=== PATIENT | female | born 1995 | race Hispanic/Latino ===

== ENCOUNTER 2016-09-14 18:44 | Emergency (ER) | payer OTHER ==
[~2016-09-14] VITALS: Ht 157.5 cm; Wt 61.2 kg
[~2016-09-14 18:44] MED LIST: AMOXICILLIN500 MG PO; BACTRIM DS1 TAB PO; CEPHALEXIN500 MG PO; FLUCONAZOLE150 MG PO; IBUPROFEN200 MG PO; MACRODANTIN100 MG PO; NO; NO HOME MEDS; NORCO1 TA1 PO; PRENATABS PO; PRENATAL1 TA1 PO; PREVACID30 M2 OR; PRILOSEC20 MG PO; REGLAN10 MG OR; TAM75CAP PO; TORADOL PO; ULTRAM50 MG OR; ZOFRAN ODT4 MG PO; ZOFRAN4 MG/TAB PO
[2016-09-14 19:34] LABS: HEMATOCRIT 39.4 % (37.0-47.0); HEMOGLOBIN 13.6 g/dl (12.0-16.0); IMMATURE GRANULOCYTES 0.6 % (0.0-1.0); MEAN CELL VOLUME 91.4 fL CALC (80.0-100.0); MEAN CORPUSCULAR HGB 31.6 pG CALC (26.0-32.0); MEAN CORPUSCULAR HGB CONC 34.5 g/L CALC (32.0-36.0); NEUT# 12.14 thou/uL (2.00-7.15); RED BLOOD COUNT 4.31 mill/uL (4.20-5.60); RED CELL DISTRI WIDTH 12.5 % (11.5-15.5); URINE BILIRUBIN - DIPSTICK NEGATIVE (NEGATIVE); URINE BLOOD DIPSTICK NEGATIVE (NEGATIVE); URINE CLARITY CLEAR; URINE COLOR YELLOW; URINE GLUCOSE - DIPSTICK NEGATIVE (NEGATIVE); URINE KETONE NEGATIVE (NEGATIVE); URINE LEUK ESTERASE TRACE (NEGATIVE); URINE NITRITE - DIPSTICK NEGATIVE (Negative); URINE PROTEIN - DIPSTICK NEGATIVE (NEG-TRACE); URINE SPECIFIC GRAVITY <=1.005; URINE UROBILINOGEN - DIPSTICK 0.2 E.U./dL (0.2)
[2016-09-14 19:44] LABS: ALKALINE PHOSPHATASE 133 u/l (38-126); ANION GAP 17 (6-22 (CALC)); BILIRUBIN, TOTAL 0.7 mg/dL (0.0-1.4); BUN 10 mg/dL (7-17); BUN/CREATININE RATIO 12 (12-20 (CALC)); CALCIUM 8.8 mg/dL (8.4-10.2); CARBON DIOXIDE 22 mmol/l (22-30); CHLORIDE 104 mmol/l (95-108); CREATININE 0.8 mg/dL (0.5-1.0); GFR > 60 ML/MIN (>=60 (CALC)); GFR FOR AFR.AMER. > 60 ML/MIN (>=60 (CALC)); GLUCOSE 80 mg/dL (65-105); POTASSIUM 3.2 mmol/l (3.5-5.1); SGOT/AST 19 u/l (14-36); SGPT/ALT 28 u/l (9-52); SODIUM 140 mmol/l (137-146); TOTAL PROTEIN 7.2 g/dL (6.3-8.2)
[2016-09-14 19:54] LABS: INFLUENZA A NONE DETECTED (NONE DETECT); INFLUENZA B NONE DETECTED (NONE DETECT)
[2016-09-14] MEDS ORDERED: DOXYCYCL HYC100 MG PO (21:03)
[2016-09-14] MEDS ORDERED: ULTRAM50 M1 PO (21:03)
[2016-09-14 21:41] VITALS: BP 113/65
== END 2016-09-14 21:40 | disposition home or self-care (01) | DRG 776 ==
LOC: ED 18:44
DX: O86.12 Endometritis following delivery (principal); R50.9 Fever, unspecified

== ENCOUNTER 2017-05-31 11:04 | Emergency (ER) | payer SELFPAY ==
[~2017-05-31] VITALS: Ht 157.5 cm; Wt 65.0 kg
[~2017-05-31 11:04] MED LIST changes: +DOXYCYCL HYC100 MG PO; +ULTRAM50 M1 PO
[2017-05-31] MEDS ORDERED: PREDNISONE50 MG PO (12:25)
[2017-05-31] MEDS ORDERED: BENADRYL25 M1 PO (12:25)
[2017-05-31 12:44] VITALS: BP 134/77
== END 2017-05-31 12:57 | disposition home or self-care (01) | DRG 916 ==
LOC: ED 11:04
DX: T78.40XA Allergy, unspecified, initial encounter (principal); L50.0 Allergic urticaria

== ENCOUNTER 2018-08-02 23:44 | Emergency (ER) | payer OTHER ==
[~2018-08-02] VITALS: Ht 157.5 cm; Wt 74.8 kg
[~2018-08-02 23:44] MED LIST changes: +BENADRYL25 M1 PO; +PREDNISONE50 MG PO
[2018-08-03 00:34] LABS: HEMATOCRIT 42.2 % (37.0-47.0); HEMOGLOBIN 14.4 g/dl (12.0-16.0); IMMATURE GRANULOCYTES 0.5 % (0.0-5.0); MEAN CELL VOLUME 94.6 fL CALC (80.0-100.0); MEAN CORPUSCULAR HGB 32.3 pG CALC (26.0-32.0); MEAN CORPUSCULAR HGB CONC 34.1 g/L CALC (32.0-36.0); NEUT# 6.75 thou/uL (2.00-7.15); RED BLOOD COUNT 4.46 mill/uL (4.20-5.60); RED CELL DISTRI WIDTH 12.5 % (11.5-15.5)
[2018-08-03 01:27] VITALS: BP 120/80
== END 2018-08-03 01:28 | disposition home or self-care (01) ==
LOC: ED 23:44
PROVIDERS: Family Medicine
DX: B34.9 Viral infection, unspecified (principal); R05 Cough; R09.81 Nasal congestion

== ENCOUNTER 2019-10-10 17:56 | Observation (INO) | payer OTHER ==
[~2019-10-10] VITALS: Ht 157.5 cm; Wt 70.3 kg
--- NOTE | 2019-10-10 18:40 | NUR ---
PT AMB TO ROOM IN OBVIOUS DISCOMFORT
--- NOTE | 2019-10-10 18:57 | NUR ---
RECEIVED HAND OFF REPORT FROM JOVON
[2019-10-10 19:15] LABS: URINE BILIRUBIN - DIPSTICK NEGATIVE (NEGATIVE); URINE BLOOD DIPSTICK SMALL (NEGATIVE); URINE COLOR YELLOW; URINE GLUCOSE - DIPSTICK NEGATIVE (NEGATIVE); URINE KETONE NEGATIVE (NEGATIVE); URINE LEUK ESTERASE MODERATE (NEGATIVE); URINE NITRITE - DIPSTICK POSITIVE (Negative); URINE PROTEIN - DIPSTICK TRACE mg/dL (NEG-TRACE); URINE UROBILINOGEN - DIPSTICK 0.2 E.U./dL (0.2)
[2019-10-10 19:22] LABS: URINE SQUAMOUS EPITHELIAL CELL FEW EPI/hpf (0-FEW); URINE WBC TNTC WBC/hpf (0-5)
[2019-10-10 19:23] LABS: URINE BACTERIA MANY hpf
[2019-10-10 19:50] LABS: HEMATOCRIT 41.9 % (37.0-47.0); HEMOGLOBIN 14.3 g/dl (12.0-16.0); IMMATURE GRANULOCYTES 0.5 % (0.0-5.0); MEAN CELL VOLUME 92.7 fL CALC (80.0-100.0); MEAN CORPUSCULAR HGB 31.6 pG CALC (26.0-32.0); MEAN CORPUSCULAR HGB CONC 34.1 g/dL CAL (32.0-36.0); NEUT# 9.81 thou/uL (2.00-7.15); RED BLOOD COUNT 4.52 mill/uL (4.20-5.60); RED CELL DISTRI WIDTH 12.6 % (11.5-15.5)
[2019-10-10 20:07] LABS: ALBUMIN 4.8 g/dL (3.2-5.0); ALKALINE PHOSPHATASE 69 u/l (38-126); ANION GAP 14 (6-22 (CALC)); BUN 10 mg/dL (7-17); BUN/CREATININE RATIO 15 (12-20 (CALC)); CARBON DIOXIDE 24 mmol/l (22-30); CHLORIDE 101 mmol/l (95-108); CREATININE 0.6 mg/dL (0.5-1.0); GFR > 60 ML/MIN (>=60 (CALC)); GFR FOR AFR.AMER. > 60 ML/MIN (>=60 (CALC)); LIPASE 73 u/l (23-300); POTASSIUM 3.5 mmol/l (3.5-5.1); SGOT/AST 19 u/l (14-36); SODIUM 136 mmol/l (137-146)
[2019-10-10 20:08] LABS: BILIRUBIN, TOTAL 1.2 mg/dL (0.0-1.4)
[2019-10-10 20:23] LABS: BETA-HCG, QUANT(RESULT NUMBER) 486 mIU/mL
--- NOTE | 2019-10-10 20:36 | NUR ---
RETURNED FROM ULTRASOUND, RESTING QUIETLY, NO S/S OF DISTRESS NOTED, RESPIRATIONS EVEN AND UNLABORED, AMBULATED INDEPENDENTLY TO THE BATHROOM.
--- NOTE | 2019-10-10 21:04 | NUR ---
RESTING QUIETLY, FAMILY AT BEDSIDE, NO C/O PAIN, NO S/S OF DISTRESS, RESPIRATIONS EVEN AND UNLABORED, AWAITING DIAGNOSTIC RESULTS.
--- NOTE | 2019-10-10 21:14 | NUR ---
PATIENT AWAITING INPATIENT BED.
--- NOTE | 2019-10-10 21:53 | NUR ---
PENDING ADMIT ASSIGNED TO ROOM 278, ENDORSED TO ED. ROOM PREPARED.
--- NOTE | 2019-10-10 22:00 | NUR ---
TELEPHONE REPORT RECEIVED FROM Stacey OTOOLE RN IN ED. AWAITING PT ARRIVAL.
--- NOTE | 2019-10-10 22:03 | NUR ---
HAND OFF REPORT GIVEN TO WILMER, PATIENT TO INPATIENT ROOM 278 BY WHEELCHAIR.
--- NOTE | 2019-10-10 22:16 | NUR ---
PT ARRIVES TO UNIT VIA , ACCOMPANIED BY Stacey OTOOLE RN. PT AMBULATORY TO BED, GAIT BALANCED AND STEADY. PT ORIENTED TO UNIT AND ROOM.
[2019-10-10 22:19] VITALS: BP 91/56
--- NOTE | 2019-10-10 22:40 | NUR ---
PT RESTING IN BED. APPEARS COMFORTABLE AND IN NO APPARENT DISTRESS. RESPIRATIONS ARE REGULAR AND UNLABORED. PHYSICAL ASSESMENT AND ADMISSION COMPLETE AT THIS TIME. SCHEDULED IVF'S INITIATED, SEE E-MAR. PLAN OF CARE REVIEWED, PT DENIES QUESTIONS, VERBALIZES UNDERSTANDING. DENIES NEEDS AT THIS TIME. ITEMS WITHIN REACH, BED LOCKED IN LOW POSITION W/ BEDRAILS UP X2. CALL SEGURA WITHIN REACH, AGREES TO CALL PRN.
--- NOTE | 2019-10-11 01:00 | NUR ---
PT APPEARS TO BE SLEEPING COMFORTABLY, NO APPARENT DISTRESS, RESPIRATIONS REGULAR AND UNLABORED. CALL SEGURA REMAINS WITHIN REACH.
[2019-10-11 04:25] VITALS: BP 97/59
--- NOTE | 2019-10-11 06:06 | NUR ---
PHYSICAL ASSESMENT UNCHANGED FROM BEGINING OF SHIFT BASELINE. PT AFEBRILE, HEMODYNAMICS STABLE. DENIES NEEDS AT THIS TIME. ITEMS REMAIN WITHIN REACH. BED REMAINS LOCKED IN LOW POSITION W/ BEDRAILS UPX2. CALL SEGURA REMAINS WITHIN REACH, AGREES TO CALL PRN.
[2019-10-11 07:23] VITALS: BP 98/61
--- NOTE | 2019-10-11 07:23 | NUR ---
PT RESTING IN BED WITH EYES CLOSED, EASILY AROUSED TO VERBAL STIMULI, NO SIGNS OF DISTRESS NOTED. RESP EVEN AND UNLABORED. DISCUSSED POC, PT VOICES NO NEEDS OR COMPLAINTS AT THIS TIME, ASSESSMENT COMPLETED, CALL LIGHT IN REACH,CONTINUE TO MONITOR.
--- NOTE | 2019-10-11 10:27 | NUR ---
PT RESTING IN BED, SIGNIFICANT OTHER AT BEDSIDE, DISCUSSED NEW IV FLUIDS AND INCREASE IN DIET. BOTH VERBALIZED UNDERSTANDING. PT VOICES NO NEEDS OR COMPLAINTS AT THIS TIME. CALL LIGHT IN REACH,CONTINUE TO MONITOR.
[2019-10-11 15:05] VITALS: BP 102/57
--- NOTE | 2019-10-11 16:11 | NUR ---
PT RESTING IN BED, VOICES NO NEEDS OR COMPLAINTS AT THIS TIME, CALL LIGHT IN REACH,CONTINUE TO MONITOR.
[2019-10-11 18:42] VITALS: BP 113/72
--- NOTE | 2019-10-11 19:15 | NUR ---
REPORT FROM GABRIEL ALMANZAR. PT NOTED RESTING IN BED. ALERT AND ORIENTED. NO APPARENT DISTRESS NOTED. PT DENIES ANY PAIN OR DISCOMFORT. PT REQUEST TO TAKE SHOWER, IVF UNHOOKED AT THIS TIME. LINENS PROVIDED AND BED LINENS CHANGED. DISCUSSED POC. PT VERBALIZED UNDERSTANDING. CALL LIGHT WITHIN REACH. WILL CONTINUE TO MONITOR.
--- NOTE | 2019-10-11 20:29 | NUR ---
PT RECONNECTED TO IVF. IV SITE APPEARS HEALTHY, FLUSHED EASILY. PT DENIES ANY PAIN OR DISCOMFORT AT THIS TIME. NO CURRENT WANTS OR NEEDS. CALL LIGHT WITHIN REACH. WILL CONTINUE TO MONITOR.
--- NOTE | 2019-10-11 23:39 | NUR ---
PT RESTING IN BED. NO APPARENT DISTRESS NOTED. IV ABT INITIATED. APPLE JUICE PROVIDED UPON REQUEST. CALL LIGHT WITHIN REACH. WILL CONTINUE TO MONITOR.
[2019-10-12 03:50] VITALS: BP 96/60
--- NOTE | 2019-10-12 03:59 | NUR ---
PT RESTING IN BED WITH EYES CLOSED. NO APPARENT DISTRESS NOTED. CALL LIGHT WITHIN REACH. WILL CONTINUE TO MONITOR.
[2019-10-12 07:30] VITALS: BP 90/58
--- NOTE | 2019-10-12 07:30 | NUR ---
ASSESSMENT IS COMPLETED: IV SITE IS FREE FROM REDNESS OR EDEMA. HR IS REG, PULSES ARE STRONG X4, ABD IS SOFT WITH ACTIVE BS. BREATH SOUNDS ARE CLEAR,BILATERALLY, NO C/O SOB. CONTINUE TO OBSERVE AND MONITOR.
--- NOTE | 2019-10-12 09:15 | NUR ---
DR CARTER INTO VISIT WITH PT.
[2019-10-12] MEDS ORDERED: AMOX/K CLAV875 M1 PO (09:26)
--- NOTE | 2019-10-12 10:00 | NUR ---
IV SITE DISCONITNUED CATHETER INTACT NO REDNESS OR EDEMA. DISCHARGE INSTRUCTIONS GIVEN TO PT. INQUIRED IF SHE NEEDS TO HAVE A WORK EXCUSE. WAS INFORMED NO . FAMILY IN THE ROOM.
--- NOTE | 2019-10-12 10:21 | NUR ---
Discharge instructions given. Patient verbalizes understanding of same. Discharged in stable condition via Wheelchair to Home with family. All belongings sent with pt.
== END 2019-10-12 10:14 | disposition home or self-care (01) ==
LOC: ED 17:56 → ED-I 20:40 → ED 20:53 → ED-I 20:54 → MS2 21:53
PROVIDERS: Family Medicine; ADMIT Surgery; ATTEND Surgery
DX: O99.611 Diseases of the digestive system complicating pregnancy, first trimester (principal); K80.00 Calculus of gallbladder with acute cholecystitis without obstruction; O23.41 Unspecified infection of urinary tract in pregnancy, first trimester; B96.20 Unspecified Escherichia coli [E. coli] as the cause of diseases classified elsewhere; Z3A.01 Less than 8 weeks gestation of pregnancy; Z20.828 Contact with and (suspected) exposure to other viral communicable diseases
CPT/HCPCS: G0378; J0131

== ENCOUNTER 2019-11-15 00:16 | Emergency (ER) | payer OTHER ==
[~2019-11-15] VITALS: Ht 157.5 cm; Wt 69.5 kg
[~2019-11-15 00:16] MED LIST changes: +AMOX/K CLAV875 M1 PO
[2019-11-15] MEDS ORDERED: PRENATA3 PO (00:35)
[2019-11-15 01:01] LABS: HEMATOCRIT 39.7 % (37.0-47.0); HEMOGLOBIN 13.4 g/dl (12.0-16.0); IMMATURE GRANULOCYTES 0.5 % (0.0-5.0); MEAN CELL VOLUME 92.8 fL CALC (80.0-100.0); MEAN CORPUSCULAR HGB 31.3 pG CALC (26.0-32.0); MEAN CORPUSCULAR HGB CONC 33.8 g/dL CAL (32.0-36.0); NEUT# 8.41 thou/uL (2.00-7.15); RED BLOOD COUNT 4.28 mill/uL (4.20-5.60); RED CELL DISTRI WIDTH 12.4 % (11.5-15.5)
[2019-11-15 01:02] LABS: URINE BILIRUBIN - DIPSTICK NEGATIVE (NEGATIVE); URINE COLOR YELLOW; URINE GLUCOSE - DIPSTICK NEGATIVE (NEGATIVE); URINE KETONE NEGATIVE (NEGATIVE); URINE PROTEIN - DIPSTICK NEGATIVE (NEG-TRACE)
[2019-11-15 01:04] LABS: URINE BLOOD DIPSTICK NEGATIVE (NEGATIVE); URINE LEUK ESTERASE MODERATE (NEGATIVE); URINE NITRITE - DIPSTICK POSITIVE (Negative)
[2019-11-15 01:08] LABS: URINE BACTERIA MANY hpf; URINE EPITHELIAL CELLS MODERATE EPI/hpf (0-FEW); URINE WBC 50-100 WBC/hpf (0-5)
[2019-11-15 01:21] LABS: ALBUMIN 4.3 g/dL (3.2-5.0); ALKALINE PHOSPHATASE 54 u/l (38-126); AMYLASE 73 u/l (30-110); ANION GAP 12 (6-22 (CALC)); BUN 8 mg/dL (7-17); BUN/CREATININE RATIO 15 (12-20 (CALC)); CARBON DIOXIDE 25 mmol/l (22-30); CHLORIDE 102 mmol/l (95-108); CREATININE 0.5 mg/dL (0.5-1.0); GFR > 60 ML/MIN (>=60 (CALC)); GFR FOR AFR.AMER. > 60 ML/MIN (>=60 (CALC)); LIPASE 117 u/l (23-300); POTASSIUM 3.7 mmol/l (3.5-5.1); SGOT/AST 26 u/l (14-36); SODIUM 135 mmol/l (137-146); TOTAL PROTEIN 7.5 g/dL (6.3-8.2)
[2019-11-15 01:22] LABS: BILIRUBIN, TOTAL 0.5 mg/dL (0.0-1.4)
[2019-11-15 07:15] VITALS: BP 138/74
== END 2019-11-15 03:15 | disposition short-term general hospital (02) ==
LOC: ED 00:16
PROVIDERS: Emergency Medicine
DX: O99.611 Diseases of the digestive system complicating pregnancy, first trimester (principal); K80.00 Calculus of gallbladder with acute cholecystitis without obstruction; O23.41 Unspecified infection of urinary tract in pregnancy, first trimester; B96.20 Unspecified Escherichia coli [E. coli] as the cause of diseases classified elsewhere; Z3A.09 9 weeks gestation of pregnancy

== ENCOUNTER 2019-11-19 09:28 | Emergency (ER) | payer OTHER ==
[~2019-11-19] VITALS: Ht 157.5 cm; Wt 70.0 kg
[~2019-11-19 09:28] MED LIST changes: +PRENATA3 PO
[2019-11-19 10:09] LABS: HEMATOCRIT 36.8 % (37.0-47.0); HEMOGLOBIN 12.4 g/dl (12.0-16.0); IMMATURE GRANULOCYTES 0.6 % (0.0-5.0); MEAN CELL VOLUME 91.5 fL CALC (80.0-100.0); MEAN CORPUSCULAR HGB 30.8 pG CALC (26.0-32.0); MEAN CORPUSCULAR HGB CONC 33.7 g/dL CAL (32.0-36.0); NEUT# 5.78 thou/uL (2.00-7.15); RED BLOOD COUNT 4.02 mill/uL (4.20-5.60)
[2019-11-19 10:26] LABS: ALKALINE PHOSPHATASE 62 u/l (38-126); ANION GAP 12 (6-22 (CALC)); BILIRUBIN, TOTAL 0.5 mg/dL (0.0-1.4); BUN 7 mg/dL (7-17); BUN/CREATININE RATIO 15 (12-20 (CALC)); CARBON DIOXIDE 22 mmol/l (22-30); CHLORIDE 103 mmol/l (95-108); CREATININE 0.4 mg/dL (0.5-1.0); GFR > 60 ML/MIN (>=60 (CALC)); GFR FOR AFR.AMER. > 60 ML/MIN (>=60 (CALC)); LIPASE 101 u/l (23-300); POTASSIUM 3.5 mmol/l (3.5-5.1); SGOT/AST 28 u/l (14-36); SODIUM 134 mmol/l (137-146); TOTAL PROTEIN 6.9 g/dL (6.3-8.2)
[2019-11-19] MEDS ORDERED: PHENERGAN25 MG/TAB PO (11:04)
[2019-11-19 11:07] VITALS: BP 134/77
== END 2019-11-19 11:13 | disposition home or self-care (01) ==
LOC: ED 09:28
PROVIDERS: Family Medicine
DX: O21.9 Vomiting of pregnancy, unspecified (principal); Z3A.10 10 weeks gestation of pregnancy; Z90.49 Acquired absence of other specified parts of digestive tract

== ENCOUNTER 2021-06-29 23:48 | Emergency (ER) | payer OTHER ==
[~2021-06-29] VITALS: Ht 157.5 cm; Wt 77.0 kg
[~2021-06-29 23:48] MED LIST changes: +PHENERGAN25 MG/TAB PO
[2021-06-30 01:33] VITALS: BP 131/85
== END 2021-06-30 01:46 | disposition home or self-care (01) | DRG 605 ==
LOC: ED 23:48
DX: S70.312A Abrasion, left thigh, initial encounter (principal); L53.9 Erythematous condition, unspecified; V47.5XXA Car driver injured in collision with fixed or stationary object in traffic accident, initial encounter; W22.11XA Striking against or struck by driver side automobile airbag, initial encounter

== ENCOUNTER 2024-05-01 12:17 | Emergency (ER) | payer OTHER ==
[2024-05-01] VITALS (8 sets, daily range): BP systolic 104–125; BP diastolic 63–81
[~2024-05-01] VITALS: Ht 157.5 cm; Wt 72.5 kg
[2024-05-01 13:08] LABS: BASO% 0.7 % (0-3); EOS% 1.1 % (0-8); HEMATOCRIT 41.9 % (37.0-47.0); HEMOGLOBIN 14.2 g/dl (12.0-16.0); IMMATURE GRANULOCYTES 0.4 % (0.0-5.0); LYMPH% 37.5 % (15-41); MEAN CELL VOLUME 96.5 fL CALC (80.0-100.0); MEAN CORPUSCULAR HGB 32.7 pG CALC (26.0-32.0); MEAN CORPUSCULAR HGB CONC 33.9 g/dL CAL (32.0-36.0); MONO% 5.8 % (2-13); NEUT# 4.6 thou/uL (2.00-7.15); NEUT% 54.5 % (42-76); RED BLOOD COUNT 4.34 mill/uL (4.20-5.60); RED CELL DISTRI WIDTH 12.5 % (11.5-15.5)
[2024-05-01 13:41] LABS: ALBUMIN 4.5 g/dL (3.2-5.0); ALKALINE PHOSPHATASE 48 u/l (38-126); ANION GAP 12 (6-22 (CALC)); BILIRUBIN, TOTAL 0.8 mg/dL (0.02-1.3); BUN 10 mg/dL (7-17); BUN/CREATININE RATIO 11 (12-20 (CALC)); CARBON DIOXIDE 26 mmol/l (22-30); CHLORIDE 106 mmol/l (95-108); ESTIMATED GFR 78 ML/MIN (>=90 (CALC)); SGOT/AST 74 u/l (14-36); SODIUM 140 mmol/l (137-146); TOTAL PROTEIN 8.1 g/dL (6.3-8.2)
[2024-05-01 13:53] LABS: TSH, 3RD GENERATION 0.83 uIU/mL (0.47 - 4.68)
== END 2024-05-01 17:03 | disposition home or self-care (01) ==
LOC: ED 12:17
PROVIDERS: Family Medicine
DX: R07.9 Chest pain, unspecified (principal); R00.2 Palpitations